=== PATIENT | female | born 1990 | race American Indian/Alaskan Native ===

== ENCOUNTER 2021-08-13 13:23 | Emergency (ER) | payer SELFPAY ==
[2021-08-13 15:06] LABS: Basophils % (Auto) 0.2 % (0.0-1.8); Eosinophils % (Auto) 0.4 % (0.0-4.3); Hematocrit 41.1 % (30.3-42.9); Hemoglobin 13.7 gm/dl (10.1-14.3); Lymphocytes % (Auto) 9.6 % (13.4-35.0); Mean Corpuscular HGB Conc 33 % (30-34); Mean Corpuscular Volume 95 fl (79-97); Monocytes # (Auto) 0.4 K/mm3 (0.0-0.8); Monocytes % (Auto) 3.8 % (0.0-7.3); Platelet Count 234 K/mm3 (140-440); Red Blood Count 4.33 M/mm3 (3.65-5.03); Red Cell Distribution Width 13.4 % (13.2-15.2)
[2021-08-13 15:32] LABS: Alanine Aminotransferase 26 units/L (7-56); Albumin 4.1 g/dL (3.9-5); BUN/Creatinine Ratio 28; Blood Urea Nitrogen 14 mg/dL (7-17); Calcium 9.5 mg/dL (8.4-10.2); Hemolysis Index 7
--- NOTE | 2021-08-13 21:29 | Emergency Department Report ---
ED Altered Mental Status HPI - General Chief Complaint: Altered Mental Status Stated Complaint: ABD PAIN Time Seen by Provider: 08/13/21 21:13 Source: patient, EMS Mode of arrival: Stretcher Limitations: No Limitations - History of Present Illness Initial Comments: Patient is a 30-year-old female brought in by EMS after being found in a hotel altered. At the time she was unable to identify her self. She currently complains of right periumbilical pain which she states began yesterday. She also complains of pain in her feet when she walks along with right lower leg and knee pain. She has an abrasion over her anterior right knee however is unable to recall what happened. - Related Data Allergies Allergy/AdvReac Type Severity Reaction Status Date / Time No Known Allergies Allergy Verified 08/13/21 19:00 ED Review of Systems ROS: Stated complaint: ABD PAIN Other details as noted in HPI Comment: All other systems reviewed and negative Constitutional: denies: chills, fever Respiratory: denies: cough, shortness of breath, wheezing Cardiovascular: denies: chest pain, palpitations Gastrointestinal: denies: abdominal pain, nausea, diarrhea Musculoskeletal: denies: back pain, joint swelling, arthralgia Skin: denies: rash, lesions Neurological: denies: headache, weakness, paresthesias Psychiatric: denies: anxiety, depression ED Past Medical Hx - Past Medical History Hx Psychiatric Treatment: Yes (BIPOLAR) Additional medical history: HEROIN/ALCOHOL ABUSE - Surgical History Past Surgical History?: No - Social History Smoking Status: Unknown if ever smoked Substance Use Type: Heroin ED Physical Exam - General Limitations: No Limitations General appearance: alert, in no apparent distress - Head Head exam: Present: atraumatic, normocephalic - Neck Neck exam: Present: normal inspection. Absent: tenderness - Respiratory Respiratory exam: Present: normal lung sounds bilaterally. Absent: respiratory distress - Cardiovascular Cardiovascular Exam: Present: regular rate, normal rhythm, normal heart sounds - GI/Abdominal GI/Abdominal exam: Present: soft. Absent: distended, tenderness - Rectal Rectal exam: Present: deferred - Neurological Exam Neurological exam: Present: alert, oriented X3 - Psychiatric Psychiatric exam: Present: normal affect, normal mood - Skin Skin exam: Present: warm, dry, intact, normal color ED Course Vital Signs 08/13/21 08/13/21 13:24 17:27 Temperature 97.7 F Pulse Rate 60 Respiratory 16 Rate Blood Pressure 118/72 [Left] O2 Sat by Pulse 99 99 Oximetry - Lab Data Result diagrams: 08/13/21 14:46 08/13/21 14:46 Lab Results 08/13/21 08/13/21 08/13/21 Range/Units 14:46 14:46 14:46 WBC 10.1 (4.5-11.0) K/mm3 RBC 4.33 (3.65-5.03) M/mm3 Hgb 13.7 (10.1-14.3) gm/dl Hct 41.1 (30.3-42.9) % MCV 95 (79-97) fl MCH 32 (28-32) pg MCHC 33 (30-34) % RDW 13.4 (13.2-15.2) % Plt Count 234 (140-440) K/mm3 Lymph % (Auto) 9.6 L (13.4-35.0) % [place] % (Auto) 3.8 (0.0-7.3) % Eos % (Auto) 0.4 (0.0-4.3) % Baso % (Auto) 0.2 (0.0-1.8) % Lymph # (Auto) 1.0 L (1.2-5.4) K/mm3 [place] # (Auto) 0.4 (0.0-0.8) K/mm3 Eos # (Auto) 0.0 (0.0-0.4) K/mm3 Baso # (Auto) 0.0 (0.0-0.1) K/mm3 Seg Neutrophils % 86.0 H (40.0-70.0) % Seg Neutrophils # 8.7 H (1.8-7.7) K/mm3 Sodium 137 (137-145) mmol/L Potassium 4.0 (3.6-5.0) mmol/L Chloride 103.2 (98-107) mmol/L Carbon Dioxide 23 (22-30) mmol/L Anion Gap 15 mmol/L BUN 14 (7-17) mg/dL Creatinine 0.5 L (0.6-1.2) mg/dL Estimated GFR > 60 ml/min BUN/Creatinine Ratio 28 % Glucose 109 H (65-100) mg/dL Calcium 9.5 (8.4-10.2) mg/dL Total Bilirubin 0.80 (0.1-1.2) mg/dL AST 39 (5-40) units/L ALT 26 (7-56) units/L Alkaline Phosphatase 68 (35-129) units/L Total Protein 7.5 (6.3-8.2) g/dL Albumin 4.1 (3.9-5) g/dL Albumin/Globulin Ratio 1.2 % Lipase 36 (13-60) units/L HCG, Qual Negative (Negative) - Medical Decision Making CBC and CMP unremarkable. hCG negative. X-ray of right knee is unremarkable. Patient was able to eat a meal in the emergency department. On reassessment patient is sleeping comfortably in bed. She is stable for discharge home with return precautions Critical care attestation.: If time is entered above; I have spent that time in minutes in the direct care of this critically ill patient, excluding procedure time. ED Disposition Clinical Impression: Right-sided abdominal pain of unknown cause, Right knee pain, Foot pain, bilateral Disposition: 01 HOME / SELF CARE / HOMELESS Is pt being admited?: No Condition: Stable Instructions: Musculoskeletal Pain, Abdominal Pain, Adult Additional Instructions: Please follow-up with your regular doctor as needed. You may return if your symptoms worsen. Time of Disposition: 01:27
--- NOTE | 2021-08-13 22:12 | XRay Report ---
RIGHT KNEE, 2 VIEW INDICATION / CLINICAL INFORMATION: Injury. Pain COMPARISON: None available. FINDINGS: The right knee appears intact. No visible fracture or malalignment. No joint effusion. IMPRESSION: Negative radiographs of the right knee. Signer Name: Amanda Beard MD Signed: 08/13/2021 10:08 PM Workstation Name: [id number]
[2021-08-14 06:26] VITALS: BP 116/82
--- NOTE | 2021-08-14 13:31 | Electrocardiograph Report ---
[facility] Test Date: 2021-08-13 Test Time: 14:04:04 Pat Name: THERESA ROSENBERG Department: Room: Gender: F [employer]: ED : 1990 Requested By: HALLIE BURT Order Number: [id number] Reading MD: Burt Alegre Measurements Intervals [place] Rate: 75 P: 79 NH: 148 QRS: 77 QRSD: 77 T: 51 QT: 389 QTc: 435 Interpretive Statements Sinus rhythm No previous ECG available for comparison Electronically Signed On 08-14-2021 13:30:56 EDT by Burt Alegre
== END 2021-08-14 07:19 | disposition home or self-care (01) ==
LOC: EDBD → ED 13:23
DX: M25.561 Pain in right knee (principal); M79.672 Pain in left foot; M79.671 Pain in right foot; R10.33 Periumbilical pain; F31.9 Bipolar disorder, unspecified; F10.10 Alcohol abuse, uncomplicated; F19.10 Other psychoactive substance abuse, uncomplicated
CPT/HCPCS: 36415; 80053; 83690; 84703; 85025; 93005; 99284